=== PATIENT | male | born 1985 | race Hispanic/Latino ===

== ENCOUNTER 2022-06-15 10:36 | Emergency (ER) | payer OTHER ==
[~2022-06-15] VITALS: Ht 165.1 cm; Wt 84.4 kg
[2022-06-15] MEDS ORDERED: ONDANSETRON ODT 4MG TAB SL ONE (11:00)
[2022-06-15] MEDS ORDERED: ONDANSETRON ODT 4MG TAB ONE (11:01)
[2022-06-15 11:15] VITALS: BP 140/71
[2022-06-15] MEDS ORDERED: HYDR25TA PO (11:16)
[2022-06-15] MEDS ORDERED: ONDA4TAB10 PO (11:16)
== END 2022-06-15 11:35 | disposition home or self-care (01) ==
LOC: EDH 10:36
DX: I10 Essential (primary) hypertension (principal)